=== PATIENT | male | born 1985 | race Two or more races ===

== ENCOUNTER 2022-04-24 17:59 | Inpatient (IN) | payer OTHER ==
[~2022-04-24] VITALS: Ht 170.2 cm; Wt 80.7 kg
--- NOTE | 2022-04-24 18:23 | NUR ---
SE RECIBE PACIENTE ALERTA Y ORIENTADO X3 QUIEN REFIERE PRESENTA DIARREAS DESDE EL JUEVES LISANDRA REFIERE DIARREAS X8 EN EL PATIENCE DE HOY Y DOLOR ABDOMINAL SE MONITOREAN LOS SV Y SE UBICA EN AUGIE.
--- NOTE | 2022-04-24 20:17 | NUR ---
ECHO SANABRIAO ORIENTA ORIENTA A PTE SOBRE TRATAMIUENTO E INSTRUCCIONES A SEGUIR, EL REFIERE ENTENDER. LE COLECTA MUESTRAS, LO CANALIZA Y LE ADMINISTRA MEDICAMENTO LOVELY ORDEN MEDICA. PENDIENTE SONO, CT Y ADMINISTRACION DE MEDICAMENTOS PENDIENTE, YA NOTIFICADOS A VIEIRA
[2022-05-02] MEDS ORDERED: AMOX-CLAV 875-1 EACH PO (10:33)
[2022-05-02] MEDS ORDERED: LEVOFLOXACIN750 MG PO (10:34)
[2022-05-02] MEDS ORDERED: PROBIOTIC1 EAC2 PO (10:35)
[2022-05-02] MEDS ORDERED: PROTONIX40 MG PO (10:35)
[2022-05-02] MEDS ORDERED: LEVSIN/SL0.125 MG SL (10:36)
== END 2022-05-02 22:04 | disposition home or self-care (01) | DRG 871 ==
LOC: ER 17:59 → SURG 04-25 01:17
PROVIDERS: ADMIT Internal Medicine; ATTEND Internal Medicine
PROC: BV44ZZZ Ultrasonography of Scrotum (ICD-10-PCS; 2022-04-24)
PROC: BW21Y0Z Computerized Tomography (CT Scan) of Abdomen and Pelvis using Other Contrast, Unenhanced and Enhanced (ICD-10-PCS; 2022-04-24)
PROC: 0W9J3ZZ Drainage of Pelvic Cavity, Percutaneous Approach (ICD-10-PCS; principal; 2022-04-25)
PROC: 3E0336Z Introduction of Nutritional Substance into Peripheral Vein, Percutaneous Approach (ICD-10-PCS; 2022-04-25)
PROC: BW21YZZ Computerized Tomography (CT Scan) of Abdomen and Pelvis using Other Contrast (ICD-10-PCS; 2022-04-30)
PROC: 069Y3ZZ Drainage of Lower Vein, Percutaneous Approach (ICD-10-PCS; 2022-05-02)
DX: A41.51 Sepsis due to Escherichia coli [E. coli] (principal); K65.1 Peritoneal abscess; K57.20 Diverticulitis of large intestine with perforation and abscess without bleeding; A41.52 Sepsis due to Pseudomonas; A41.89 Other specified sepsis; K52.9 Noninfective gastroenteritis and colitis, unspecified; K64.5 Perianal venous thrombosis; N50.812 Left testicular pain; N50.811 Right testicular pain; Z20.822 Contact with and (suspected) exposure to COVID-19

== ENCOUNTER 2022-07-28 08:43 | Inpatient (IN) | payer OTHER ==
[~2022-07-28] VITALS: Ht 170.2 cm; Wt 84.4 kg
[~2022-07-28 08:43] MED LIST: AMOX-CLAV 875-1 EACH PO; LEVOFLOXACIN750 MG PO; LEVSIN/SL0.125 MG SL; PROBIOTIC1 EAC2 PO; PROTONIX40 MG PO
[2022-08-04] MEDS ORDERED: BUPROPION XL150 MG (10:18)
[2022-08-08] MEDS ORDERED: HYOSCYAMINE0.125 M1 SL (17:04)
== END 2022-08-08 17:23 | disposition home or self-care (01) | DRG 329 ==
LOC: O/R 08-04 06:52 → SURH 08-04 08:45
PROVIDERS: ADMIT Surgery; ATTEND Surgery
PROC: 0DBP4ZZ Excision of Rectum, Percutaneous Endoscopic Approach (ICD-10-PCS; 2022-08-04)
PROC: 0DJD8ZZ Inspection of Lower Intestinal Tract, Via Natural or Artificial Opening Endoscopic (ICD-10-PCS; 2022-08-04)
PROC: 0DTN4ZZ Resection of Sigmoid Colon, Percutaneous Endoscopic Approach (ICD-10-PCS; principal; 2022-08-04 12:15)
DX: K57.20 Diverticulitis of large intestine with perforation and abscess without bleeding (principal); K65.1 Peritoneal abscess; N32.1 Vesicointestinal fistula; Z20.822 Contact with and (suspected) exposure to COVID-19; R59.0 Localized enlarged lymph nodes

== ENCOUNTER → 2022-11-14 13:54 | Outpatient (CLI) | payer OTHER ==
[~2022-11-14 13:54] MED LIST changes: +BUPROPION XL150 MG; +HYOSCYAMINE0.125 M1 SL
== END | disposition home or self-care (01) ==
LOC: LAB 13:54
DX: R30.0 Dysuria (principal)

== ENCOUNTER 2023-07-09 15:28 | Emergency (ER) | payer OTHER ==
[~2023-07-09] VITALS: Ht 170.2 cm; Wt 91.6 kg
[2023-07-09] MEDS ORDERED: 0.9 % SODIUM CHLORIDE 1,000 ML IV STA (16:36)
[2023-07-09 18:28] LABS: HEMATOCRIT 46.8 % (39.0-48.0); HEMOGLOBIN 16.7 g/dL (13-16.00); MEAN CORPUSCULAR HEMOGLOBIN 31.5 pg (27.00-32.0); MEAN CORPUSCULAR HGB CONC 35.8 g/dl (32.0-36.0); RED BLOOD COUNT 5.32 M/uL (4.00-6.00); RED CELL DISTRIBUTION WIDTH 12.7 % (11.5-14.5)
[2023-07-09 18:29] LABS: PLATELET COUNT 125 K/uL (150-450)
[2023-07-09 18:43] LABS: INR 1.23; PARTIAL THROMBOPLASTIN TIME 31.5 SECONDS (22.0-34.0); PROTHROMBIN TIME 12.7 SECONDS (9.0-11.5)
[2023-07-09 18:48] LABS: ALBUMIN 4.1 gm/dL (3.4-5.0); BILIRUBIN TOTAL 0.89 mg/dL (0.3-1.2); CALCIUM 9.1 mg/dL (8.5-10.1); CREATININE SERUM 1.31 mg/dL (0.70-1.30); GFR 60.91; GLOBULINA 3.7 G/DL (2.4-3.5); POTASSIUM 3.91 mEq/L (3.5-5.1); TOTAL PROTEIN 7.8 gm/dL (6.4-8.2)
== END 2023-07-09 20:04 | disposition home or self-care (01) ==
LOC: ER 15:29
PROVIDERS: General Practice
DX: A90 Dengue fever [classical dengue] (principal); R50.9 Fever, unspecified; Z20.822 Contact with and (suspected) exposure to COVID-19